=== PATIENT | female | born 1970 | race Caucasian/White ===

== ENCOUNTER 2023-08-04 18:56 | Emergency (ER) | payer OTHER ==
[~2023-08-04] VITALS: Ht 172.7 cm; Wt 52.9 kg
[2023-08-04] MEDS ORDERED: NS 1,000 ML IV SCH (19:45)
[2023-08-04] MEDS ORDERED: fentaNYL 100 MCG/2 ML VIAL IV ONE ×2 (19:45→21:45)
[2023-08-04 20:26] LABS: HEMATOCRIT 37.2 % (37.0-47.0); HEMOGLOBIN 12.1 g/dL (12.5-16.0); MEAN CELL VOLUME 95 fl (78-100); MEAN CORPUSCULAR HEMOGLOBIN 31 pg (27-31); MEAN CORPUSCULAR HGB CONC 33 g/dL (33-37); MEAN PLATELET VOLUME 9.9 fl (7.4-10.4); PLATELET COUNT 257 K/mm3 (130-400); RED BLOOD COUNT 3.93 M/mm3 (4.10-5.30); RED CELL DISTRIBUTION WIDTH 13.2 % (11.5-14.5); WHITE BLOOD COUNT 8.9 K/mm3 (4.8-10.8)
[2023-08-04 20:28] LABS: ALBUMIN 4.2 g/dL (3.5-5.0)
[2023-08-04 20:29] LABS: CALCIUM 9.6 mg/dL (8.3-10.5)
[2023-08-04 20:30] LABS: TOTAL PROTEIN 7.2 g/dL (6.4-8.3)
[2023-08-04 20:32] LABS: TOTAL BILIRUBIN 0.5 mg/dL (0.2-1.2)
[2023-08-04 20:55] LABS: PROTHROMBIN TIME 10.4 SECONDS (9.0-12.0)
[2023-08-04 20:58] LABS: LYMPHOCYTE 9 % (20-51); MONOCYTE 1 % (3-10); NEUTROPHILS 89 % (42-75)
[2023-08-04 22:20] VITALS: BP 125/76
[2023-08-05] MEDS ORDERED: OLANZAPINE5 M1 PO (07:52)
[2023-08-05] MEDS ORDERED: NORCO 325 MG-7.1 TA1 PO (07:54)
== END 2023-08-04 22:43 | disposition short-term general hospital (02) ==
LOC: ED 18:56
PROVIDERS: Registered Nurse
DX: S72.001A Fracture of unspecified part of neck of right femur, initial encounter for closed fracture (principal); W18.30XA Fall on same level, unspecified, initial encounter
CPT/HCPCS: J3010; J7030

== ENCOUNTER → 2023-09-17 | Outpatient (CLI) | payer OTHER ==
[~2023-09-17] MED LIST: NORCO 325 MG-7.1 TA1 PO; OLANZAPINE5 M1 PO
== END ==
LOC: RAD 18:10
DX: Z87.820 Personal history of traumatic brain injury (principal)

== ENCOUNTER → 2023-10-03 | Outpatient (CLI) | payer OTHER | LOC: VAS 13:12 | DX: I08.0 Rheumatic disorders of both mitral and aortic valves (principal) ==

== ENCOUNTER → 2024-06-15 | Outpatient (CLI) | payer OTHER | LOC: RAD 12:12 | DX: M54.50 Low back pain, unspecified (principal); T14.90XA Injury, unspecified, initial encounter ==